=== PATIENT | female | born 1975 | race Caucasian/White ===

== ENCOUNTER → 2020-07-06 | Outpatient (CLI) | payer MEDICARE ==
--- NOTE | 2020-07-07 06:40 | US ---
EXAMINATION TYPE: US thyroid st tissue head/neck DATE OF EXAM: 07/06/2020 COMPARISON: NONE CLINICAL HISTORY: E05.90 hyperthyroidism. abnormal labs GLAND SIZE: Right Lobe: 5.8 x 3.0 x 2.2 cm Overall Parenchyma: heterogenous Left Lobe: 5.7 x 2.4 x 1.5 cm Overall Parenchyma: heterogeneous Isthmus Thickness: 0.3 cm NODULES RIGHT: # of nodules measured on right: 0 LEFT: # of nodules measured on left: 0 ISTHMUS: # of nodules measured in the isthmus: 0 Bilateral neck scanned, no evidence of lymphadenopathy. Heterogeneous slightly enlarged thyroid gland without discrete nodule. IMPRESSION: As above.
== END | disposition home or self-care (01) ==
LOC: RADUSWWP 16:11
PROVIDERS: ATTEND Pediatrics
DX: E05.90 Thyrotoxicosis, unspecified without thyrotoxic crisis or storm (principal)
CPT/HCPCS: 76536

== ENCOUNTER → 2020-11-01 | Outpatient (CLI) | payer MEDICARE ==
--- NOTE | 2020-11-01 10:34 | XR ---
EXAMINATION TYPE: XR thoracic spine 2V DATE OF EXAM: 11/01/2020 CLINICAL HISTORY: Chronic back pain TECHNIQUE: Frontal, lateral, and swimmer's view of thoracic spine are obtained. COMPARISON: None. FINDINGS: Thoracic spine show dextroconvex scoliotic curvature positioning centered mid to lower thor acic spine without evidence of acute fracture or dislocation. Vertebral body heights are preserved. Moderate to severe disc space narrowing with endplate sclerosis and mild to moderate spurring centere d anterior T11-T12 level. Visualized ribs are intact bilaterally. Incidental reversal of normal cer vical curvature centered mid cervical spine. IMPRESSION: As above.
--- NOTE | 2020-11-01 10:35 | XR ---
EXAMINATION TYPE: XR lumbosacral spine min 4V DATE OF EXAM: 11/01/2020 CLINICAL HISTORY: Chronic low back pain. TECHNIQUE: Frontal, lateral, and oblique images of the lumbar spine are obtained. COMPARISON: None FINDINGS: There are 5 lumbar type vertebral bodies identified. The lumbar spine shows satisfactory alignment without evidence of acute fracture or dislocation. Vertebral body heights and disk space he ights are within normal limits. The oblique images appear within normal limits. The overlying soft tissue appears unremarkable. IMPRESSION: As above.
== END | disposition home or self-care (01) ==
LOC: RADXRMAIN 09:37
PROVIDERS: ATTEND Physician Assistant
DX: M54.9 Dorsalgia, unspecified (principal)
CPT/HCPCS: 72070; 72110

== ENCOUNTER → 2020-12-10 | Outpatient (CLI) | payer MEDICARE ==
--- NOTE | 2020-12-10 09:25 | MR ---
EXAMINATION TYPE: MR augustoine/gerry wo/w con DATE OF EXAM: 12/10/2020 9:15 AM COMPARISON: NONE HISTORY: Mid back pain for 2 years, low back pain that travels down left leg for 20 years. History of vulvar cancer 2019. Contrast: [Gadavist 7ml Multiplanar MultiSpin echo imaging of the thoracic spine was performed. Pre and post contrast enhanc ed images are obtained. Disc spaces: Moderate degenerative disc space narrowing at T11-T12 where there is mild posterior disc bulge. Degenerative endplate marrow changes noted in mild ventral spondylosis. Spinal canal: No evidence for canal stenosis. No intrinsic or extrinsic lesion. Thoracic spinal cord: Thoracic spinal cord is of normal caliber and signal. Paraspinal soft tissues: No evidence for paraspinal mass. No destructive lesions seen. Vertebral segments: No evidence for fracture or bony lesion. IMPRESSION: 1. Degenerative disc space narrowing and spondylosis posterior disc bulging at T11-T12 with degenerat keily endplate marrow change. Otherwise unremarkable study. EXAMINATION TYPE: MR augustoine/gerry wo/w con DATE OF EXAM: 12/10/2020 9:15 AM COMPARISON: The liver, and oblique HISTORY: Mid back pain for 2 years, low back pain that travels down left leg for 20 years. History of vulvar cancer 2019. CONTRAST: The patient was injected with 7 mL intravenous Gadavist gadolinium contrast. Multiplanar, MultiSpin echo imaging of the lumbar spine was performed. L1-L2: Normal disc appearance without desiccation. No herniation, protrusion or disc bulging. No ca nal stenosis is present. Foramina are patent bilaterally. L2-L3: Normal disc appearance without desiccation. No herniation, protrusion or disc bulging. No ca nal stenosis is present. Foramina are patent bilaterally. L3-L4: Normal disc appearance without desiccation. No herniation, protrusion or disc bulging. No ca nal stenosis is present. Foramina are patent bilaterally. L4-L5: Normal disc appearance without desiccation. No herniation, protrusion or disc bulging. No ca nal stenosis is present. Foramina are patent bilaterally. L5-S1: Normal disc appearance without desiccation. No herniation, protrusion or disc bulging. No ca nal stenosis is present. Foramina are patent bilaterally. Lumbar segments are intact. No paraspinal masses are identified. Conus medullaris has a normal appe arance. 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 IMPRESSION: 1. No significant abnormality of the lumbar spine.
== END | disposition home or self-care (01) ==
LOC: RADMRIMAIN 07:47
PROVIDERS: ATTEND Physician Assistant
DX: M51.34 Other intervertebral disc degeneration, thoracic region (principal); M47.894 Other spondylosis, thoracic region
CPT/HCPCS: 72157; 72158; A9585

== ENCOUNTER → 2021-02-16 | Outpatient (CLI) | payer MEDICARE ==
--- NOTE | 2021-02-16 11:04 | XR ---
EXAMINATION TYPE: XR chest 2V DATE OF EXAM: 02/16/2021 COMPARISON: NONE HISTORY: Chest pain TECHNIQUE: Frontal and lateral views of the chest are obtained. FINDINGS: There is no focal air space opacity. No evidence for pneumothorax. No pleural effusion. The cardiac silhouette size is within normal limits. The osseous structures are grossly intact. IMPRESSION: 1. No acute cardiopulmonary process.
== END | disposition home or self-care (01) ==
LOC: RADXRMAIN 10:33
PROVIDERS: ATTEND Physician Assistant
DX: R06.02 Shortness of breath (principal)
CPT/HCPCS: 71046

== ENCOUNTER 2021-04-11 10:19 | Day surgery (SDC) | payer MEDICARE ==
[2021-04-05 12:53] VITALS: BMI 24.3
[~2021-04-11 10:19] MED LIST: LACTATED RINGERS 1,000 ML IV SCH
[2021-04-11 10:41] VITALS: TEMP 97.3
[2021-04-11] MEDS ORDERED: LIDOCAINE 1% INJ 10MG/ML (20 ML MDV) ONE (11:04)
[2021-04-11] MEDS ORDERED: PROPOFOL 10 MG/ML 20 ML VIAL IV ONE (11:04)
--- NOTE | 2021-04-11 11:06 | P.GSHP ---
History of Present Illness H&P Date: 04/11/21 Chief Complaint: Dysphagia, change in bowel habits Refer to H&P from 02/16. Patient here today for upper and lower endoscopy. Patient with complaints of dysphagia at times. Patient also has complaints of frequent constipation and takes MiraLAX daily. Patient underwent previous pelvic radiation for vulvar cancer. Past Medical History Past Medical History: Cancer, Eye Disorder, Hypertension Additional Past Medical History / Comment(s): HX CONGENTIAL NYSTAGMUS. HX VULVAR CANCER WITH SX AND RADIATION History of Any Multi-Drug Resistant Organisms: None Reported Past Surgical History: Section Additional Past Surgical History / Comment(s): VULVAR SX. D & C Past Anesthesia/Blood Transfusion Reactions: No Reported Reaction Smoking Status: Current every day smoker - Past Family History Mother Family Medical History: No Reported History Medications and Allergies Home Medications Medication Instructions Recorded Confirmed Type Dextroamphetamine/Amphetamine 20 mg PO QAM 04/05/21 04/11/21 History [Adderall Xr] Lisinopril [Prinivil] 10 mg PO DAILY 04/05/21 04/11/21 History Naproxen Sodium [Naproxen Sodium 500 mg PO DAILY 04/05/21 04/11/21 History ER] Omeprazole [PriLOSEC] 20 mg PO AC-BRKFST 04/05/21 04/11/21 History amLODIPine [Norvasc] 10 mg PO DAILY 04/05/21 04/11/21 History Allergies Allergy/AdvReac Type Severity Reaction Status Date / Time Latex, Natural Rubber Allergy Rash/Hives Verified 04/11/21 10:36 Surgical - Exam Vital Signs Temp Pulse Resp BP Pulse Ox 97.3 F L 98 16 157/97 98 04/11/21 10:39 04/11/21 10:39 04/11/21 10:39 04/11/21 10:39 04/11/21 10:39 Physical exam: General: Well-developed, well-nourished HEENT: Normocephalic, sclerae nonicteric Abdomen: Nontender, nondistended Extremities: No edema Neuro: Alert and oriented Assessment and Plan (1) Change in bowel habits Narrative/Plan: Will proceed with upper and lower endoscopy. Current Visit: Yes Status: Acute Code(s): R19.4 - CHANGE IN BOWEL HABIT SNOMED Code(s): 771563626
--- NOTE | 2021-04-11 11:30 | P.PCN ---
Date of Procedure: 04/11/21 Procedure(s) Performed: PREOPERATIVE DIAGNOSIS: Dysphagia, change in bowel habits POSTOPERATIVE DIAGNOSIS: Mild gastritis, small rectal polyp PROCEDURE: 1. EGD with biopsy 2. Colonoscopy with biopsy ANESTHESIA: MAC SURGEON: Rohit Bashir M.D. SPECIMENS: Antrum, rectal polyp ENDOSCOPIC PROCEDURE: The patient was on the endoscopy table in the left decubitus position. The Olympus gastroscope was inserted into the oropharynx and passed under direct visualization to the region of the third portion of the duodenum. From that point the scope was slowly withdrawn inspecting all surfaces carefully. There were no neoplastic inflammatory or polypoid lesions throughout the duodenum. The pylorus was widely patent. The stomach was carefully inspected. There was mild gastritis. A biopsy of the antrum took place to rule out H. pylori. Retroflexion revealed a normal hiatus. The esophagus was then carefully examined. There were no neoplastic inflammatory or polypoid lesions throughout the visualized esophagus. The patient was kept on the endoscopy table in the left decubitus position. The Olympus colonoscope was inserted into the anus and passed under direct visualization to the base of the cecum. The appendiceal orifice was visualized. From that point the scope was slowly withdrawn inspecting all surfaces carefully. There were no neoplastic inflammatory or polypoid lesions throughout the cecum, ascending, transverse, descending, and sigmoid colon. In the rectum a small polyp was seen and removed using the cold biopsy forceps. There was no visible diverticulosis noted. Digital rectal examination was normal. The patient was taken to the recovery room in stable condition per anesthesia guidelines. RECOMMENDATIONS: Await biopsy results. Continue stool softeners as needed. Follow-up colonoscopy based on pathology findings.
[2021-04-11 12:04] VITALS: BP 131/85; PULSE 88; RESP 16
== END 2021-04-11 12:23 | disposition home or self-care (01) ==
LOC: ORWHC2ENDO 10:19
PROVIDERS: ATTEND Surgery
DX: K29.50 Unspecified chronic gastritis without bleeding (principal); R19.4 Change in bowel habit; K62.1 Rectal polyp; K21.9 Gastro-esophageal reflux disease without esophagitis; F90.9 Attention-deficit hyperactivity disorder, unspecified type; I10 Essential (primary) hypertension; Z85.89 Personal history of malignant neoplasm of other organs and systems; I73.00 Raynaud's syndrome without gangrene; M19.90 Unspecified osteoarthritis, unspecified site; M21.41 Flat foot [pes planus] (acquired), right foot; Z98.890 Other specified postprocedural states; Z98.891 History of uterine scar from previous surgery; F17.210 Nicotine dependence, cigarettes, uncomplicated; Z92.3 Personal history of irradiation; Z79.891 Long term (current) use of opiate analgesic; Z79.1 Long term (current) use of non-steroidal anti-inflammatories (NSAID); Z79.899 Other long term (current) drug therapy; Z91.040 Latex allergy status
CPT/HCPCS: 88305; 45380; 43239; J2001; J2704

== ENCOUNTER → 2021-12-25 | Outpatient (CLI) | payer MEDICARE ==
--- NOTE | 2021-12-25 10:59 | US ---
EXAMINATION TYPE: US abdomen complete DATE OF EXAM: 12/25/2021 COMPARISON: NONE CLINICAL HISTORY: R10.12 LUQ abdominal pain. Abdominal pain within the LUQ. TECHNIQUE: Multiple sonographic images of the abdomen are obtained. FINDINGS: EXAM MEASUREMENTS: Liver Length: 19.4 cm Gallbladder Wall: 0.17 cm CBD: 0.45 cm Spleen: 10.1 cm Right Kidney: 10.1 x 4.7 x 5.2 cm Left Kidney: 10.4 x 5.0 x 5.8 cm ROCK STAR NOTES: Limited due to overlying bowel gas. Pancreas: limited due to gas. Liver: Appears enlarged and very coarse in echotexture with increased echogenicity. This appearance l imits evaluation for small intrahepatic masses. Indistinct, hypoechoic area seen within the right lob e adjacent to the gallbladder: 1.8 x 1.1 x 1.4 cm. This is favored to represent focal fatty sparing. Gallbladder: Appears anechoic. No shadowing calculi, wall thickening, or pericholecystic fluid. Evidence for sonographic Serrano's sign: No CBD: Appears wnl Spleen: Appears wnl Right Kidney: No hydronephrosis or masses seen . No contour deforming solid mass, hydronephrosis, or shadowing calculi. Left Kidney: No hydronephrosis or masses seen . No contour deforming solid mass, hydronephrosis, o r shadowing calculi. Upper IVC: Appears wnl Abd Aorta: Proximal segment appears ectatic measuring 2.7 cm. IMPRESSION: 1. No acute process. 2. Hyperechoic coarsened liver echotexture which is most commonly seen with hepatic steatosis. Indist inct hypoechoic area seen adjacent to the gallbladder favored to represent focal fatty sparing. 3. Ectasia of the proximal abdominal aorta measuring up to 2.7 cm.
== END | disposition home or self-care (01) ==
LOC: RADUSWWP 09:55
PROVIDERS: ATTEND Pediatrics
DX: R10.12 Left upper quadrant pain (principal)
CPT/HCPCS: 76700

== ENCOUNTER → 2022-08-02 | Outpatient (CLI) | payer MEDICARE ==
--- NOTE | 2022-08-02 17:03 | CT ---
EXAMINATION TYPE: CT abdomen pelvis w con DATE OF EXAM: 08/02/2022 COMPARISON: None INDICATION: abdominal pain, change in bowel habits DLP: 639.1 mGycm, Automated exposure control for dose reduction was used. CONTRAST: 100 mL of Isovue 300. Study performed with Oral Contrast TECHNIQUE: Axial images were obtained from above the diaphragm to the pubic rami in the axial plane a t 5 mm thick sections. Reconstructed images are reviewed on the computer in the coronal plane. FINDINGS: Limited CT sections are obtained the lung bases. The lung bases are clear. Small hiatal hernia is p resent. CT ABDOMEN: Liver: There is mild diffuse fatty infiltration to the liver. Spleen: Normal Pancreas: Normal Adrenal glands: The adrenal glands are normal. Gallbladder: Normal Kidneys: No masses are evident. No hydronephrosis is present. No cysts are present. Delayed images were obtained through the kidneys, which remain unremarkable. Aorta: Vascular calcification is within the aorta. Inferior vena cava: Normal. CT PELVIS: Loops of bowel within the abdomen and pelvis are normal. There are loops of bowel which are incom pletely distended or lack oral contrast limiting their evaluation. Appendix: Normal as visualized. Urinary bladder: Normal. Genitourinary structures: Osseous structures: No suspicious lytic or sclerotic lesions. IMPRESSIONS: 1. Mild fatty infiltration to the liver. 2. Hiatal hernia.
--- NOTE | 2022-08-02 17:12 | XR ---
EXAMINATION TYPE: XR chest 2V DATE OF EXAM: 08/02/2022 COMPARISON: 02/16/2021 HISTORY: 46-year-old female [id number] TECHNIQUE: From and lateral views FINDINGS: The cardiomediastinal silhouette, aorta, and pulmonary vasculature are within normal limits. Mild hyp erinflation. Lungs and pleural spaces are clear. Old healed left posterior sixth and seventh rib frac ture deformities. IMPRESSION: No acute cardiopulmonary process. Mild hyperinflation may relate to depth of inspiration or underlyin g emphysema. Clinically correlate.
== END | disposition home or self-care (01) ==
LOC: RADCTMAIN 11:27
PROVIDERS: ATTEND Pediatrics
DX: K76.0 Fatty (change of) liver, not elsewhere classified (principal); K44.9 Diaphragmatic hernia without obstruction or gangrene; J43.9 Emphysema, unspecified; R94.31 Abnormal electrocardiogram [ECG] [EKG]
CPT/HCPCS: 71046; 74177; Q9967